=== PATIENT | female | born 1955 | race Two or more races ===

== ENCOUNTER 2024-01-29 13:51 | Emergency (ER) | payer OTHER ==
[~2024-01-29] VITALS: Ht 160 cm; Wt 72.6 kg
[2024-01-29 14:12] VITALS: BP 157/69; O2SAT 99
[2024-01-29] MEDS ORDERED: TENORMIN50 M1 (14:14)
[2024-01-29] MEDS ORDERED: LEVOTHYROXINE25 MCG (14:14)
[2024-01-29] MEDS ORDERED: MEDROLPACK PO (14:54)
[2024-01-29] MEDS ORDERED: KETO10TA2 PO (14:54)
[2024-01-29] MEDS ORDERED: KETOROLAC TROMETHAMINE 60 MG VIAL IM ONE (15:00)
[2024-01-29] MEDS ORDERED: METHYLPREDNISOLONE SOD SUCC 40 MG VIAL IM ONE (15:00)
== END 2024-01-29 14:59 | disposition home or self-care (01) ==
LOC: ER 13:53
DX: H93.8X2 Other specified disorders of left ear (principal); Z85.828 Personal history of other malignant neoplasm of skin